=== PATIENT | male | born 1990 | race Two or more races ===

== ENCOUNTER 2017-07-01 03:09 | Emergency (ER) | payer SELFPAY ==
[2017-07-01 03:27] VITALS: BP 122/74; PULSE 96; TEMP 97.9; BMI 28.5
--- NOTE | 2017-07-01 05:10 | PDOC ---
History of Present Illness - General Chief Complaint: Toothache Stated Complaint: MOUTH PAIN Time Seen by Provider: 07/01/17 05:04 History Source: Patient Exam Limitations: No Limitations - History of Present Illness Initial Comments: 07/01/17 05:17 Patient is a 26 year old male with no pmhx c/o toothache since yesterday. States has a cavity for a long time but yesterday tooth broke. Had been taking tylenol and motrin for the pain last dose motrin was 11 pm last night, tylenol earlier in the day. States pain is 10/10 no alleviating or aggravating factors. Called the dentist and has appointment in 3 days. Denies fever, chills, nausea, vomiting. PMHX: as above PSCOHX: neg etoh, durg, cig ALL: NKDA GENERAL/CONSTITUTIONAL: [No fever or chills. No weakness. No weight change.] HEAD, EYES, EARS, NOSE AND THROAT: [No change in vision. No ear pain or discharge. No sore throat.] CARDIOVASCULAR: [No chest pain or shortness of breath.] RESPIRATORY: [No cough, wheezing, or hemoptysis.] GASTROINTESTINAL: [No nausea, vomiting, diarrhea or constipation. No rectal bleeding.] GENITOURINARY: [No dysuria, frequency, or change in urination.] MUSCULOSKELETAL: [No joint or muscle swelling or pain. No neck or back pain.] SKIN AND BREASTS: [No rash or easy bruising.] NEUROLOGIC: [No headache, vertigo, loss of consciousness, or loss of sensation.] PSYCHIATRIC: [No depression or anxiety.] ENDOCRINE: [No increased thirst. No abnormal weight change.] HEMATOLOGIC/LYMPHATIC: [No anemia, easy bleeding, or history of blood clots.] ALLERGIC/IMMUNOLOGIC: [No hives or skin allergy. No latex allergy.] GENERAL: [The patient is awake, alert, and fully oriented, in moderate painful distress.] HEAD: [Normal with no signs of trauma.] EYES: [Pupils equal, round and reactive to light, extraocular movements intact, sclera anicteric, conjunctiva clear.] ENT: [Ears normal, nares patent, oropharynx clear without exudates. Moist mucous membranes, (+) dental neo #5 to the gumline.] NECK: [Normal range of motion, supple without lymphadenopathy, JVD, or masses.] LUNGS: [Breath sounds equal, clear to auscultation bilaterally. No wheezes, and no crackles.] HEART: [Regular rate and rhythm, normal S1 and S2 without murmur, rub.] ABDOMEN: [Soft, nontender, normoactive bowel sounds. No guarding, no rebound. No masses.] EXTREMITIES: [Normal range of motion, no edema. No clubbing or cyanosis. No cords, erythema, or tenderness.] NEUROLOGICAL: [Cranial nerves II through XII grossly intact. Normal speech, normal gait.] PSYCH: [Normal mood, normal affect.] SKIN: [Warm, Dry, normal turgor, no rashes or lesions noted.] Past History - Past Medical History Allergies/Adverse Reactions: Allergies Allergy/AdvReac Type Severity Reaction Status Date / Time No Known Allergies Allergy Verified 07/01/17 03:25 Home Medications: Ambulatory Orders Oxycodone HCl/Acetaminophen [Percocet 5-325 mg Tablet -] 1 - 2 tab PO Q4H #20 tablet 07/16/13 Ibuprofen [Motrin -] 600 mg PO PRN 07/01/17 Oxycodone HCl/Acetaminophen [Percocet 5/325 -] 1 tab PO Q4H #20 tablet MDD 6 10/11 Penicillin V Potassium [Pen Vee K -] 500 mg PO TID #21 tablet 07/01/17 COPD: No - Immunization History Immunization Up to Date: Yes - Suicide/Smoking/Psychosocial Hx Smoking History: Never smoked Have you smoked in the past 12 months: No Information on smoking cessation initiated: No Hx Alcohol Use: No Drug/Substance Use Hx: No Substance Use Type: None *Physical Exam - Vital Signs Last Vital Signs Temp Pulse Resp BP Pulse Ox 97.9 F 96 H 20 122/74 99 07/01/17 03:10 07/01/17 03:10 07/01/17 03:10 07/01/17 03:10 07/01/17 03:10 Medical Decision Making - Medical Decision Making 07/01/17 05:27 Patient is a 26 year old male with no pmhx c/o toothache since yesterday. will give Percocet x2, toradol 60mg IM, PenVK 500mg po, viscous lido and Benadryl liquid swish and swallow. I discussed the physical exam findings, ancillary test results and final diagnoses with the patient. I answered all of the patient's questions. The patient was satisfied with the care received and felt comfortable with the discharge plan and treatment plan. The Patient agrees to follow up with the primary care physician within 24-72 hours. *DC/Admit/Observation/Transfer Diagnosis at time of Disposition: Toothache, Dental caries - Discharge Dispostion Disposition: HOME Condition at time of disposition: Stable - Prescriptions Prescriptions: Oxycodone HCl/Acetaminophen [Percocet 5/325 -] 1 tab PO Q4H #20 tablet MDD 6 Penicillin V Potassium [Pen Vee K -] 500 mg PO TID #21 tablet - Referrals Referrals: Zeina Garcia MD [Primary Care Provider] - - Patient Instructions Printed Discharge Instructions: DI for Tooth Decay, DI for Dental Pain Additional Instructions: Your Discharge Instructions: You must call primary care physician within 24 hours to arrange follow-up. Return to the Emergency Department with any new, persistent or worsening symptoms, for fever, chills, SOB, dizziness or any other concerning changes that may occur. Follow-up with the dentist. - Post Discharge Activity
[2017-07-01] MEDS ORDERED: PENICILLIN V POTASSIUM 500 MG TABLET PO ONE (05:14)
[2017-07-01] MEDS ORDERED: KETOROLAC TROMETHAMINE 60 MG/2 ML VIAL IM ONE (05:14)
[2017-07-01] MEDS ORDERED: LIDOCAINE VISCOUS 2% ORAL/TOP 100 ML BOTTLE MM ONE (05:15)
[2017-07-01] MEDS ORDERED: diphenhydrAMINE HCL 12.5 MG/5 ML UNIT-DOSE CUPS PO ONE (05:15)
[2017-07-01] MEDS ORDERED: diphenhydrAMINE HCL 25 MG CAPSULE (FP) PO ONE (05:26)
[2017-07-01] MEDS ORDERED: KETOROLAC TROMETHAMINE 60 MG/2 ML VIAL ONE (05:26)
[2017-07-01] MEDS ORDERED: LIDOCAINE VISCOUS 2% ORAL/TOP 20 ML UNIT-DOSE CUP ONE (05:26)
[2017-07-01] MEDS ORDERED: diphenhydrAMINE HCL 12.5 MG/5 ML BULK BOTTLE ONE (05:27)
== END 2017-07-01 05:55 | disposition home or self-care (01) ==
LOC: JER 03:09
PROC: 3E0233Z Introduction of Anti-inflammatory into Muscle, Percutaneous Approach (ICD-10-PCS; principal; 2017-07-01)
DX: K08.89 Other specified disorders of teeth and supporting structures (principal); K02.9 Dental caries, unspecified
CPT/HCPCS: 99282-25

== ENCOUNTER 2018-02-16 17:14 | Emergency (ER) | payer SELFPAY ==
[2018-02-16 17:19] VITALS: BP 133/78; PULSE 91; TEMP 98; BMI 31.8
--- NOTE | 2018-02-16 17:28 | PDOC ---
History of Present Illness - General Chief Complaint: Injury Stated Complaint: LT LEG INJURY Time Seen by Provider: 02/16/18 17:22 History Source: Patient - History of Present Illness Occurred: reports: this afternoon Lower Extremity Pain Location: left: ankle, knee Method of Injury: Yes: fell, twisted Past History - Past Medical History Allergies/Adverse Reactions: Allergies Allergy/AdvReac Type Severity Reaction Status Date / Time No Known Allergies Allergy Verified 02/16/18 17:19 Home Medications: Ambulatory Orders Oxycodone HCl/Acetaminophen [Percocet 5-325 mg Tablet -] 1 - 2 tab PO Q4H #20 tablet 07/16/13 Ibuprofen [Motrin -] 600 mg PO PRN 07/01/17 Oxycodone HCl/Acetaminophen [Percocet 5/325 -] 1 tab PO Q4H #20 tablet MDD 6 10/11 Penicillin V Potassium [Pen Vee K -] 500 mg PO TID #21 tablet 07/01/17 COPD: No - Immunization History Immunization Up to Date: Yes - Suicide/Smoking/Psychosocial Hx Smoking History: Never smoked Have you smoked in the past 12 months: No Hx Alcohol Use: No Drug/Substance Use Hx: No Substance Use Type: None Review of Systems - Review of Systems Musculoskeletal: Yes: Joint Pain. No: Joint Swelling *Physical Exam - Vital Signs Last Vital Signs Temp Pulse Resp BP Pulse Ox 98 F 91 H 18 133/78 99 02/16/18 17:16 02/16/18 17:16 02/16/18 17:16 02/16/18 17:16 02/16/18 17:16 - Physical Exam General Appearance: Yes: Appropriately Dressed, Mild Distress HEENT: positive: Normal Voice Neck: positive: Supple Respiratory/Chest: negative: Respiratory Distress Extremity: positive: Normal Inspection, Tender (to medial knee w/ pain to site on valgus stress, no swelling, FROMI) Integumentary: positive: Dry, Warm Neurologic: positive: Fully Oriented, Alert, Normal Mood/Affect ED Treatment Course - RADIOLOGY Radiology Studies Ordered: Category Date Time Status ANKLE & FOOT-LEFT* [RAD] Stat Radiology 02/16/18 17:26 Ordered KNEE 3 POS-LEFT [RAD] Stat Radiology 02/16/18 17:25 Ordered Medical Decision Making - Medical Decision Making 02/16/18 17:26 27 yo M, here w/ LLE pain s/p fall while playing basketball today, painful to bear weight since See exam Possibe kne sprain R/o fx -pain meds -XR 02/16/18 17:45 XR neg for fx. Shola placed to L knee. Dc w/ crutches, motrin prn pain. Ortho referral as needed *DC/Admit/Observation/Transfer Diagnosis at time of Disposition: Knee sprain Qualifiers: Encounter type: initial encounter Involved ligament of knee: unspecified ligament Laterality: left Qualified Code(s): S83.92XA - Sprain of unspecified site of left knee, initial encounter - Discharge Dispostion Disposition: HOME Condition at time of disposition: Good - Referrals Referrals: Dagoberto Preston MD [Staff Physician] - - Patient Instructions Printed Discharge Instructions: DI for Knee Sprain Additional Instructions: Your XR did not show any signs of fracture. You most likely sprained your knee. This condition can take a week to 2 to resolve. If you're having pain after 2 weeks, please follow-up with Dr. Preston of orthopedics. Take Motrin as needed for pain - Post Discharge Activity Forms/Work/School Notes: Back to Work
[2018-02-16] MEDS ORDERED: KETOROLAC TROMETHAMINE 60 MG/2 ML VIAL IM ONE (17:43)
[2018-02-16] MEDS ORDERED: KETOROLAC TROMETHAMINE 60 MG/2 ML VIAL ONE (17:44)
== END 2018-02-16 17:57 | disposition home or self-care (01) ==
LOC: JERFT 17:14
PROC: 3E0233Z Introduction of Anti-inflammatory into Muscle, Percutaneous Approach (ICD-10-PCS; principal; 2018-02-16)
DX: S83.8X2A Sprain of other specified parts of left knee, initial encounter (principal); W18.39XA Other fall on same level, initial encounter; Y93.67 Activity, basketball; Y92.310 Basketball court as the place of occurrence of the external cause; Y99.8 Other external cause status
CPT/HCPCS: 73562-TC-LT-FY; 73610-TC-LT-FY; 73630-TC-LT; 99281-25

== ENCOUNTER 2019-04-05 08:45 | Emergency (ER) | payer SELFPAY ==
[2019-04-05 08:50] VITALS: BP 143/95; PULSE 71; TEMP 97; BMI 25.8
--- NOTE | 2019-04-05 09:23 | PDOC ---
History of Present Illness - General Chief Complaint: Toothache Stated Complaint: TOOTHACHE Time Seen by Provider: 04/05/19 09:21 History Source: Patient Exam Limitations: No Limitations - History of Present Illness Initial Comments: 04/05/19 09:46 Patient is here with complaints of right upper incisor and first molar pain. States he has had multiple dental issues over the past and had some cracking to his upper teeth past week where now has severe pain from same. Denies fever, denies swelling to his face, has no insurance and was hesitant to seek dental advice Timing/Duration: unsure, 1 week Severity: moderate, severe Associated Symptoms: denies: fever/chills Past History - Travel Traveled outside of the country in the last 30 days: No Close contact w/someone who was outside of country & ill: No - Past Medical History Allergies/Adverse Reactions: Allergies Allergy/AdvReac Type Severity Reaction Status Date / Time No Known Allergies Allergy Verified 04/05/19 08:50 Home Medications: Ambulatory Orders Oxycodone HCl/Acetaminophen [Percocet 5-325 mg Tablet -] 1 - 2 tab PO Q4H #20 tablet 07/16/13 Ibuprofen [Motrin -] 600 mg PO PRN 07/01/17 Oxycodone HCl/Acetaminophen [Percocet 5/325 -] 1 tab PO Q4H #20 tablet MDD 6 10/11 Penicillin V Potassium [Pen Vee K -] 500 mg PO TID #21 tablet 07/01/17 COPD: No - Immunization History Immunization Up to Date: Yes - Psycho Social/Smoking Cessation Hx Smoking History: Never smoked Have you smoked in the past 12 months: No Hx Alcohol Use: No Drug/Substance Use Hx: No Substance Use Type: None Review of Systems - Review of Systems Able to Perform ROS?: Yes Is the patient limited Serbian proficient: Yes Constitutional: Yes: See HPI. No: Symptoms Reported, Fever, Malaise HEENTM: Yes: Symptoms Reported, See HPI, Mouth Pain, Dental Problems, Mouth Swelling Respiratory: Yes: See HPI. No: Symptoms reported Cardiac (ROS): No: Symptoms Reported, Chest Pain ABD/GI: No: Constipated, Diarrhea : No: Symptoms Reported Neurological: No: Symptoms reported, Headache All Other Systems: Reviewed and Negative *Physical Exam - Vital Signs Last Vital Signs Temp Pulse Resp BP Pulse Ox 97 F L 71 18 143/95 100 04/05/19 08:47 04/05/19 08:47 04/05/19 08:47 04/05/19 08:47 04/05/19 08:47 - Physical Exam General Appearance: Yes: Nourished, Appropriately Dressed, Apparent Distress, Moderate Distress HEENT: positive: MELITA, Normal ENT Inspection, TMs Normal, Pharynx Normal, Other (Has multiple dental erosions with right upper incisor broken with pulp exposed , and first molar cracked in half. Has no gum abscess swelling or fluctuance.) Neck: positive: Supple. 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 Tylenol or Motrin for fever and pain Complete all medication as prescribed Seek dental appointment as soon as possible for evaluation of dental injury/pain Followup with private physician in one to 2 days as needed Return to emergency department for worsened symptoms, fevers, swelling to face or worsened pain - Post Discharge Activity Work/Back to School Note: Back to Work
[2019-04-05] MEDS ORDERED: AMOXICILLIN 500 MG CAPSULE (FP) PO ONE (09:28)
[2019-04-05] MEDS ORDERED: KETOROLAC TROMETHAMINE 60 MG/2 ML VIAL IM ONE (09:29)
[2019-04-05] MEDS ORDERED: AMOX TR/POT CLAV 500MG/125MG TABLETS (FP) ONE (09:35)
[2019-04-05] MEDS ORDERED: KETOROLAC TROMETHAMINE 60 MG/2 ML VIAL ONE (09:35)
== END 2019-04-05 09:47 | disposition home or self-care (01) ==
LOC: JERFT 08:45
PROC: 3E0233Z Introduction of Anti-inflammatory into Muscle, Percutaneous Approach (ICD-10-PCS; principal; 2019-04-05)
DX: K08.89 Other specified disorders of teeth and supporting structures (principal)
CPT/HCPCS: 99281-25